=== PATIENT | female | born 1955 | race Caucasian/White ===

== ENCOUNTER → 2017-04-18 | Outpatient (CLI) | payer BC ==
[~2017-04-18] MED LIST: CALCIUM1 CAP PO; DYAZIDE 25 MG-31 CAP PO; LEVAQUIN 5500 MG/TA1 PO; MULTIPLE VITAMI1 CAP PO; PRILOSEC 20MG20 MG PO; PROBIOTIC FORMU1 CAP PO; TYLENOL 325MG325 MG PO; VITAMIN D 400400 IU PO; ZANTAC 150MG T150 MG PO
== END ==
LOC: MC.RAD 11:37
DX: Z12.31 Encounter for screening mammogram for malignant neoplasm of breast (principal); N63 Unspecified lump in breast; Z85.3 Personal history of malignant neoplasm of breast

== ENCOUNTER → 2017-05-16 | Outpatient (CLI) | payer BC | LOC: COL.RAD 14:00 | DX: R10.9 Unspecified abdominal pain (principal); D35.02 Benign neoplasm of left adrenal gland ==

== ENCOUNTER → 2018-04-24 | Outpatient (CLI) | payer BC | LOC: MC.RAD 04-20 11:40 | DX: Z12.31 Encounter for screening mammogram for malignant neoplasm of breast (principal); Z85.3 Personal history of malignant neoplasm of breast; Z98.890 Other specified postprocedural states; Z92.3 Personal history of irradiation ==

== ENCOUNTER → 2019-04-26 | Outpatient (CLI) | payer BC | LOC: MC.RAD 09:30 | DX: Z12.31 Encounter for screening mammogram for malignant neoplasm of breast (principal); Z85.3 Personal history of malignant neoplasm of breast; Z98.890 Other specified postprocedural states; Z92.3 Personal history of irradiation ==